=== PATIENT | female | born 2000 | race African-American/Black ===

== ENCOUNTER 2020-06-06 13:57 | Emergency (ER) | payer MEDICAID ==
[~2020-06-06] VITALS: Ht 157.5 cm; Wt 77.3 kg
[2020-06-06 15:02] VITALS: BP 127/75
[2020-06-06] MEDS ORDERED: IBUPROFEN 600 MG TABLET PO ONE (15:30)
== END 2020-06-06 16:03 | disposition home or self-care (01) ==
LOC: EMS 13:57
DX: M54.5 Low back pain (principal); M79.18 Myalgia, other site; Y04.0XXA Assault by unarmed brawl or fight, initial encounter; Y93.89 Activity, other specified; Y92.89 Other specified places as the place of occurrence of the external cause; Y99.8 Other external cause status
CPT/HCPCS: Z7502